=== PATIENT | male | born 1995 | race Caucasian/White ===

== ENCOUNTER 2021-11-11 18:53 | Emergency (ER) | payer OTHER ==
[~2021-11-11] VITALS: Ht 193 cm; Wt 95.5 kg
[2021-11-11 18:54] VITALS: BP 140/76
[2021-11-11] MEDS ORDERED: BENZ200C70 PO (21:08)
[2021-11-11] MEDS ORDERED: ONDA4TAB6 PO (21:08)
== END 2021-11-11 21:25 | disposition home or self-care (01) ==
LOC: M ED 18:53
DX: U07.1 COVID-19 (principal)

== ENCOUNTER 2023-11-13 10:39 | Emergency (ER) | payer OTHER ==
[~2023-11-13 10:39] MED LIST: BENZ200C70 PO; ONDA4TAB6 PO
[2023-11-13] MEDS ORDERED: ZYRT10TA12 PO (10:54)
[2023-11-13 13:35] LABS: BASO % 0.3 % (0.0-1.0); EOS # 0.1 10^3/uL (0.0-0.5); EOS % 0.6 % (0.0-3.0); HEMATOCRIT 45.7 % (42.0-52.0); HEMOGLOBIN 15.6 g/dl (13.5-17.5); LYMPH # 2.1 10^3/uL (1.5-5.0); LYMPH % 22.1 % (24.0-44.0); MEAN CORPUSCULAR HEMOGLOBIN 30.2 pg (27.0-33.0); MEAN CORPUSCULAR HGB CONC 34.1 g/dl (32.0-36.5); MEAN CORPUSCULAR VOLUME 88.4 fl (80.0-96.0); MONO # 0.5 10^3/uL (0.0-0.8); MONO % 5.3 % (2.0-8.0); NEUTROPHILS # 6.9 10^3/uL (1.5-8.5); NEUTROPHILS % 71.1 % (36.0-66.0); PLATELET COUNT, AUTOMATED 292 10^3/uL (150-450); RED BLOOD COUNT 5.17 10^6/uL (4.30-6.10); WHITE BLOOD COUNT 9.7 10^3/uL (4.0-10.0)
[2023-11-13 13:59] LABS: ALBUMIN 4.4 G/DL (3.2-5.2); ALKALINE PHOSPHATASE 143 U/L (46-116); ALT/SGPT 38 U/L (7.0-40); AST/SGOT 39 U/L (<34); BILIRUBIN,DIRECT 0.2 MG/DL (<0.4); BILIRUBIN,TOTAL 0.8 MG/DL (0.3-1.2); BLOOD UREA NITROGEN 12 MG/DL (9-23); CALCIUM LEVEL 9.4 MG/DL (8.5-10.1); CARBON DIOXIDE LEVEL 30 MMOL/L (20-31); CHLORIDE LEVEL 104 MMOL/L (98-107); CREATININE FOR GFR 0.98 MG/DL (0.70-1.30); GLOMERULAR FILTRATION RATE > 60.0 (>60); GLUCOSE, FASTING 81 MG/DL (60-100); POTASSIUM SERUM 4.3 MMOL/L (3.5-5.1); SODIUM LEVEL 138 MMOL/L (136-145); TOTAL PROTEIN 7.7 G/DL (5.7-8.2)
[2023-11-13 14:19] LABS: CPK CREATINE PHOSPHOKINASE 454 U/L (46-171)
[2023-11-13 14:21] VITALS: BP 132/94; TEMP 97.4; O2SAT 98
== END 2023-11-13 15:31 | disposition home or self-care (01) ==
LOC: M ED 10:39
DX: R53.1 Weakness (principal); Z72.820 Sleep deprivation; Z79.52 Long term (current) use of systemic steroids